=== PATIENT | male | born 1965 | race Caucasian/White ===

== ENCOUNTER → 2017-04-16 | Outpatient (CLI) | payer OTHER ==
[2017-04-16 11:51] LABS: AUTOMATED NEUTROPHIL # 3.5 TH/MM3 (1.8-7.7); BASOPHIL % 0.4 % (0.0-2.0); EOSINOPHIL # 0.1 TH/MM3 (0-0.4); EOSINOPHIL % 2.6 % (0.0-4.0); HEMATOCRIT 41.1 % (39.0-51.0); HEMO FLAGS DIFF FINAL; MEAN CELL VOLUME 92.9 FL (80.0-100.0); MEAN CORPUSCULAR HEMOGLOBIN 32.4 PG (27.0-34.0); MEAN CORPUSCULAR HGB CONC 34.9 % (32.0-36.0); MONO % 9.9 % (0.0-8.0); NEUT % 68.1 % (16.0-70.0); PLATELET COUNT 105 TH/MM3 (150-450); RED BLOOD COUNT 4.43 MIL/MM3 (4.50-5.90); RED CELL DISTRIBUTION WIDTH 13.9 % (11.6-17.2); WHITE BLOOD COUNT 5.1 TH/MM3 (4.0-11.0)
[2017-04-16 12:33] LABS: ALKALINE PHOSPHATASE 106 U/L (45-117); ALT (GPT) 136 U/L (12-78); ANION GAP 7 MEQ/L (5-15); AST (GOT) 140 U/L (15-37); BICARBONATE 29.4 MEQ/L (21.0-32.0); BLOOD UREA NITROGEN 12 MG/DL (7-18); CHLORIDE 104 MEQ/L (98-107); GLOMERULAR FILTRATION RATE 97 ML/MIN (>89); GLUCOSE,FASTING 99 MG/DL (74-99); HDL CHOLESTEROL 89.2 MG/DL (40.0-60.0); LDL CHOLESTEROL 176 MG/DL (0-99); POTASSIUM 4.1 MEQ/L (3.5-5.1); SODIUM (NA) 140 MEQ/L (136-145); TOTAL BILIRUBIN ADULT 0.9 MG/DL (0.2-1.0)
== END ==
LOC: CLAB 11:18
PROVIDERS: ATTEND Family Medicine
DX: M25.569 Pain in unspecified knee (principal); M72.2 Plantar fascial fibromatosis; F10.10 Alcohol abuse, uncomplicated; Z59.0 Homelessness; E78.00 Pure hypercholesterolemia, unspecified
CPT/HCPCS: 36415; 80053; 80061; 84443; 85025

== ENCOUNTER → 2017-04-17 | Outpatient (CLI) | payer OTHER | LOC: CLAB 10:43 | PROVIDERS: ATTEND Family Medicine | DX: R74.8 Abnormal levels of other serum enzymes (principal); F10.10 Alcohol abuse, uncomplicated | CPT/HCPCS: 36415; 80074 ==

== ENCOUNTER → 2017-07-16 | Outpatient (CLI) | payer OTHER ==
[~2017-07-16] MED LIST: CYCL1TAB29 PO; IBUP800T23 PO; LIPI40TA PO; TRIA40P I-ARTICULR
[2017-07-16 11:44] LABS: HDL CHOLESTEROL 69.8 MG/DL (40.0-60.0)
== END ==
LOC: CLAB 10:58
PROVIDERS: ATTEND Family Medicine
DX: E78.5 Hyperlipidemia, unspecified (principal)
CPT/HCPCS: 36415; 80061